=== PATIENT | male | born 1970 | race Two or more races ===

== ENCOUNTER 2023-05-30 21:39 | Inpatient (IN) | payer OTHER ==
[~2023-05-30] VITALS: Ht 165.1 cm; Wt 127.0 kg
[2023-05-30] MEDS ORDERED: PREDNISONE20 M1 PO (21:44)
[2023-05-30 23:27] LABS: MEAN CELL VOLUME 101.7 fL (80.0-100.00); MEAN CORPUSCULAR HGB CONC 33.2 g/dl (32.0-36.0); RED BLOOD COUNT 1.95 M/uL (4.00-6.00)
[2023-05-30 23:32] LABS: PH,URINE 5.5 (5.0-8.0); URINE APPEARANCE Turbid; URINE BILIRRUBIN Negative (NEGATIVE); URINE BLOOD Large; URINE COLOR Yellow; URINE GLUCOSE Negative (NEGATIVE); URINE LEUKOCYTE Small; URINE NITRATE Negative
[2023-05-30 23:35] LABS: MEAN CORPUSCULAR HEMOGLOBIN 33.8 pg (27.00-32.0)
[2023-05-30 23:36] LABS: URINE BACTERIA 264.5 uL (0.0-1933); URINE WBC 36.9 uL (0.0-23.2)
[2023-05-30 23:36] LABS: RED CELL DISTRIBUTION WIDTH 46.4 % (11.5-14.5)
[2023-05-30 23:37] LABS: HEMATOCRIT 19.8 % (39.0-48.0); HEMOGLOBIN 6.6 g/dL (13-16.00)
[2023-05-30 23:48] LABS: URINE PROTEIN 300 (NEGATIVE)
[2023-05-31 00:16] LABS: ALBUMIN 3.6 gm/dL (3.4-5.0); BILIRUBIN TOTAL 2.13 mg/dL (0.3-1.2); CALCIUM 8.8 mg/dL (8.5-10.1); CREATININE SERUM 1.81 mg/dL (0.70-1.30); GFR 39.72; GLOBULINA 4.2 G/DL (2.4-3.5); POTASSIUM 3.98 mEq/L (3.5-5.1); TOTAL PROTEIN 7.8 gm/dL (6.4-8.2)
[2023-05-31 01:00] LABS: PLATELET COUNT 15 K/uL (150-450)
[2023-05-31 02:21] LABS: D DIMER 6.22 MG/L; INR 1.14; PARTIAL THROMBOPLASTIN TIME 24.4 SECONDS (22.0-34.0); PROTHROMBIN TIME 11.9 SECONDS (9.0-11.5)
[2023-05-31 02:57] LABS: ob POSITIVE (NEGATIVE)
[2023-05-31 20:15] LABS: HEMATOCRIT 26.2 % (39.0-48.0); MEAN CELL VOLUME 97.7 fL (80.0-100.00); MEAN CORPUSCULAR HGB CONC 33.3 g/dl (32.0-36.0); RED BLOOD COUNT 2.68 M/uL (4.00-6.00)
[2023-05-31 20:51] LABS: MEAN CORPUSCULAR HEMOGLOBIN 32.4 pg (27.00-32.0)
[2023-05-31 20:52] LABS: HEMOGLOBIN 8.7 g/dL (13-16.00); RED CELL DISTRIBUTION WIDTH 36.7 % (11.5-14.5)
[2023-06-01 01:05] LABS: PH,URINE 5.5 (5.0-8.0); URINE APPEARANCE Clear; URINE BILIRRUBIN Negative (NEGATIVE); URINE BLOOD Large; URINE COLOR Yellow; URINE GLUCOSE Negative (NEGATIVE); URINE LEUKOCYTE Trace; URINE NITRATE Negative; URINE UROBILINOGEN 0.2 E.U./dl
[2023-06-01 01:06] LABS: URINE BACTERIA 157.4 uL (0.0-1933); URINE EPITHELIAL CELLS 22.1 uL (0.0-38.8); URINE RBC 1055.4 uL (0.0-20.8)
[2023-06-01 01:13] LABS: URINE PROTEIN 300 (NEGATIVE)
[2023-06-01 09:22] LABS: HEMATOCRIT 28.5 % (39.0-48.0); HEMOGLOBIN 9.6 g/dL (13-16.00); MEAN CELL VOLUME 98.8 fL (80.0-100.00); MEAN CORPUSCULAR HEMOGLOBIN 33.3 pg (27.00-32.0); MEAN CORPUSCULAR HGB CONC 33.6 g/dl (32.0-36.0); RED BLOOD COUNT 2.89 M/uL (4.00-6.00)
[2023-06-01 09:39] LABS: PLATELET COUNT 38 K/uL (150-450); RED CELL DISTRIBUTION WIDTH 36.7 % (11.5-14.5)
[2023-06-01 13:23] LABS: PLATELET COUNT 12 K/uL (150-450); PLATELET ESTIMATE DECREASED (NORMAL)
[2023-06-02 08:24] LABS: ALBUMIN 3.5 gm/dL (3.4-5.0); BILIRUBIN TOTAL 2.31 mg/dL (0.3-1.2); CALCIUM 8.3 mg/dL (8.5-10.1); CREATININE SERUM 1.58 mg/dL (0.70-1.30); GFR 46.47; GLOBULINA 3.5 G/DL (2.4-3.5); POTASSIUM 4.49 mEq/L (3.5-5.1)
[2023-06-02 08:34] LABS: ALT/SGPT 52 U/L (12-78); AST/SGOT 106 U/L (15-37)
[2023-06-02 09:03] LABS: LDH 2792 U/L (87-241); PHOSPHOKINASE CREATININE 937 U/L (39-308)
[2023-06-02 09:32] LABS: HEMATOCRIT 29.3 % (39.0-48.0); MEAN CELL VOLUME 101.6 fL (80.0-100.00); MEAN CORPUSCULAR HGB CONC 33.3 g/dl (32.0-36.0); RED BLOOD COUNT 2.88 M/uL (4.00-6.00)
[2023-06-02 10:07] LABS: HAPTOGLOBIN < 10 mg/dL (29-370)
[2023-06-02 14:49] LABS: RED CELL DISTRIBUTION WIDTH 39.4 % (11.5-14.5)
[2023-06-02 14:54] LABS: CORRECTED WBC 17.28 K/mm3; HEMOGLOBIN 9.7 g/dL (13-16.00); MEAN CORPUSCULAR HEMOGLOBIN 33.6 pg (27.00-32.0)
[2023-06-02 14:56] LABS: PLATELET COUNT 27 K/uL (150-450)
[2023-06-03 07:50] LABS: ALBUMIN 3.6 gm/dL (3.4-5.0); BILIRUBIN TOTAL 2.2 mg/dL (0.3-1.2); CALCIUM 8.2 mg/dL (8.5-10.1); CREATININE SERUM 1.78 mg/dL (0.70-1.30); GFR 40.5; GLOBULINA 3.5 G/DL (2.4-3.5); POTASSIUM 4.89 mEq/L (3.5-5.1); TOTAL PROTEIN 7.1 gm/dL (6.4-8.2)
[2023-06-03 08:22] LABS: HEMATOCRIT 30.8 % (39.0-48.0); HEMOGLOBIN 9.9 g/dL (13-16.00); MEAN CELL VOLUME 103.5 fL (80.0-100.00); MEAN CORPUSCULAR HEMOGLOBIN 33.2 pg (27.00-32.0); MEAN CORPUSCULAR HGB CONC 32.1 g/dl (32.0-36.0); RED BLOOD COUNT 2.98 M/uL (4.00-6.00)
[2023-06-03 10:19] LABS: RED CELL DISTRIBUTION WIDTH 44.1 % (11.5-14.5)
[2023-06-03 10:21] LABS: PLATELET COUNT 17 K/uL (150-450)
[2023-06-04 14:45] LABS: HEMOGLOBIN 10.5 g/dL (13-16.00); MEAN CELL VOLUME 105.7 fL (80.0-100.00); MEAN CORPUSCULAR HEMOGLOBIN 34.9 pg (27.00-32.0); PLATELET COUNT 47 K/uL (150-450); RED BLOOD COUNT 3.02 M/uL (4.00-6.00); RED CELL DISTRIBUTION WIDTH 47.2 % (11.5-14.5)
[2023-06-04 20:29] LABS: HEMATOCRIT 31.6 % (39.0-48.0); HEMOGLOBIN 10.4 g/dL (13-16.00); MEAN CELL VOLUME 106.9 fL (80.0-100.00); MEAN CORPUSCULAR HGB CONC 32.7 g/dl (32.0-36.0); RED BLOOD COUNT 2.96 M/uL (4.00-6.00)
[2023-06-04 20:30] LABS: RED CELL DISTRIBUTION WIDTH 46.1 % (11.5-14.5)
[2023-06-04 20:31] LABS: PLATELET COUNT 92 K/uL (150-450)
[2023-06-05 06:06] LABS: dRVVT 51.1 sec (0.0-47.0); interp Comment: (.); ptt-la 36.5 sec (0.0-43.5)
[2023-06-06 07:04] LABS: HEMATOCRIT 33.8 % (39.0-48.0); HEMOGLOBIN 11.2 g/dL (13-16.00); MEAN CELL VOLUME 107.2 fL (80.0-100.00); MEAN CORPUSCULAR HEMOGLOBIN 35.6 pg (27.00-32.0); MEAN CORPUSCULAR HGB CONC 33.2 g/dl (32.0-36.0); RED BLOOD COUNT 3.15 M/uL (4.00-6.00)
[2023-06-06 08:19] LABS: RED CELL DISTRIBUTION WIDTH 44.3 % (11.5-14.5)
[2023-06-06 08:20] LABS: PLATELET COUNT 40 K/uL (150-450)
[2023-06-06 09:19] LABS: CREATININE URINE 86.3 MG/DL
[2023-06-06 09:34] LABS: CREATINE CLEARANCE 81.8 ML/MIN (97-137); CREATININE SERUM 1.56 mg/dL (0.8-1.3); URINE PROT QUANT 24 HR 1147.5 MG/24HR (42-225)
[2023-06-06 18:06] LABS: anti MPO AB < 0.2 units (0.0-0.9); anti pr3 < 0.2 units (0.0-0.9); c anca <1:20 titer (Neg:<1:20); p anca <1:20 titer (Neg:<1:20)
[2023-06-07 07:54] LABS: HEMATOCRIT 31.7 % (39.0-48.0); HEMOGLOBIN 10.3 g/dL (13-16.00); MEAN CELL VOLUME 108.9 fL (80.0-100.00); MEAN CORPUSCULAR HEMOGLOBIN 35.4 pg (27.00-32.0); MEAN CORPUSCULAR HGB CONC 32.6 g/dl (32.0-36.0); RED BLOOD COUNT 2.92 M/uL (4.00-6.00)
[2023-06-07 08:22] LABS: ALBUMIN 3.3 gm/dL (3.4-5.0); BILIRUBIN TOTAL 1.04 mg/dL (0.3-1.2); CALCIUM 8.4 mg/dL (8.5-10.1); CREATININE SERUM 1.48 mg/dL (0.70-1.30); GFR 50.11; GLOBULINA 2.9 G/DL (2.4-3.5); POTASSIUM 4.46 mEq/L (3.5-5.1); TOTAL PROTEIN 6.2 gm/dL (6.4-8.2)
[2023-06-07 09:10] LABS: RED CELL DISTRIBUTION WIDTH 42.3 % (11.5-14.5)
[2023-06-07 09:12] LABS: PLATELET COUNT 47 K/uL (150-450)
[2023-06-07] MEDS ORDERED: MEDROLPACK PO (18:20)
[2023-06-07] MEDS ORDERED: Procardia Xl 30MG TA PO (18:21)
[2023-06-07] MEDS ORDERED: PANTOPRAZOLE SO40 MG PO (18:24)
[2023-06-07] MEDS ORDERED: RESTORIL15 MG PO (18:24)
[2023-06-09 08:10] LABS: COMPLEMENT C3 106 mg/dL (82-167); COMPLEMENT C4 20 mg/dL (12-38)
[2023-06-09 14:06] LABS: DNA AB DOUBLE STRABDED < 1 IU/mL (0-9)
== END 2023-06-07 22:06 | disposition home or self-care (01) | DRG 813 ==
LOC: ER 21:39 → ICU-2 23:49 → SEC-K 06-01 13:36 → MEDI 06-01 14:18
PROVIDERS: General Practice; Internal Medicine Infectious Disease; Internal Medicine Nephrology; Nurse Practitioner Family; ADMIT Internal Medicine Hematology & Oncology; ATTEND Internal Medicine Hematology & Oncology
PROC: BW40ZZZ Ultrasonography of Abdomen (ICD-10-PCS; 2023-05-30)
PROC: 30233R1 Transfusion of Nonautologous Platelets into Peripheral Vein, Percutaneous Approach (ICD-10-PCS; principal; 2023-05-31)
PROC: 30233N1 Transfusion of Nonautologous Red Blood Cells into Peripheral Vein, Percutaneous Approach (ICD-10-PCS; 2023-05-31)
PROC: B246ZZZ Ultrasonography of Right and Left Heart (ICD-10-PCS; 2023-05-31)
PROC: 4A12X4Z Monitoring of Cardiac Electrical Activity, External Approach (ICD-10-PCS; 2023-06-01)
DX: D69.3 Immune thrombocytopenic purpura (principal); I21.A1 Myocardial infarction type 2; D59.4 Other nonautoimmune hemolytic anemias; N17.8 Other acute kidney failure; N39.0 Urinary tract infection, site not specified; R80.8 Other proteinuria; D69.41 Evans syndrome; D64.89 Other specified anemias; E86.0 Dehydration; F41.9 Anxiety disorder, unspecified; G47.09 Other insomnia